=== PATIENT | female | born 1950 | race Caucasian/White ===

== ENCOUNTER 2017-05-08 17:46 | Emergency (ER) | payer MEDICARE, BC ==
[~2017-05-08] VITALS: Ht 165.1 cm; Wt 83.7 kg
[2017-05-08 17:48] VITALS: BP 168/93
== END 2017-05-08 19:07 | disposition home or self-care (01) ==
LOC: ED 18:29
DX: J20.8 Acute bronchitis due to other specified organisms (principal); I10 Essential (primary) hypertension
CPT/HCPCS: 71046; 99284